=== PATIENT | male | born 1960 | race Caucasian/White ===

== ENCOUNTER 2021-10-27 07:26 | Day surgery (SDC) | payer BC, OTHER ==
[2021-10-27] MEDS ORDERED: fentaNYL 100 MCG/2 ML SDV IV ONE (07:27)
[2021-10-27] MEDS ORDERED: Midazolam 1 MG/ML 2 ML SDV IV ONE (07:27)
[2021-10-27] MEDS ORDERED: Lactated Ringers 1,000 ML IV PRN (07:30)
[2021-10-27] MEDS: Sodium Chloride 0.9% 10 ML Syringe FLUSH PRN (07:55)
[2021-10-27] MEDS: acetaZOLAMIDE 500 MG Cap.ER PO ONE (09:29)
[2021-10-27 09:31] VITALS: BP 157/103; PULSE 65
== END 2021-10-27 09:40 | disposition home or self-care (01) ==
LOC: FB.SDS 07:26
PROVIDERS: ATTEND Ophthalmology
DX: H25.13 Age-related nuclear cataract, bilateral (principal); H35.3131 Nonexudative age-related macular degeneration, bilateral, early dry stage; H04.123 Dry eye syndrome of bilateral lacrimal glands; H35.54 Dystrophies primarily involving the retinal pigment epithelium; H52.31 Anisometropia; I73.9 Peripheral vascular disease, unspecified; E78.5 Hyperlipidemia, unspecified; F17.210 Nicotine dependence, cigarettes, uncomplicated; F41.9 Anxiety disorder, unspecified; Z98.890 Other specified postprocedural states
CPT/HCPCS: 00142-QZ; A9270-GY; J2250; J3010; J3490; V2632

== ENCOUNTER 2021-11-24 06:39 | Day surgery (SDC) | payer OTHER ==
[2021-11-24] MEDS ORDERED: Sodium Chloride 0.9% 10 ML Syringe IV ONE (06:40)
[2021-11-24] MEDS ORDERED: Midazolam 1 MG/ML 2 ML SDV IV ONE (06:40)
[2021-11-24] MEDS ORDERED: Labetalol 100 MG/20 ML MDV IV ONE (06:40)
[2021-11-24] MEDS ORDERED: fentaNYL 100 MCG/2 ML SDV IV ONE (06:40)
[2021-11-24] MEDS ORDERED: Sodium Chloride 0.9% 10 ML Syringe FLUSH PRN (06:45)
[2021-11-24] MEDS ORDERED: Lactated Ringers 1,000 ML IV PRN (06:45)
[2021-11-24] MEDS ORDERED: acetaZOLAMIDE 500 MG Cap.ER PO ONE (09:00)
[2021-11-24 16:28] VITALS: PULSE 64
[2021-11-24 16:29] VITALS: BP 128/84
== END 2021-11-24 09:20 | disposition home or self-care (01) ==
LOC: FB.SDS 06:39
PROVIDERS: ATTEND Ophthalmology
DX: H26.9 Unspecified cataract (principal); F17.210 Nicotine dependence, cigarettes, uncomplicated; F41.9 Anxiety disorder, unspecified; E78.5 Hyperlipidemia, unspecified; Z79.899 Other long term (current) drug therapy; Z98.1 Arthrodesis status; Z98.890 Other specified postprocedural states
CPT/HCPCS: 00142; 66984; A9270; J2250; J3010; J3490

== ENCOUNTER 2024-10-30 08:10 | Day surgery (SDC) | payer BC ==
[~2024-10-30 08:10] MED LIST: Lactated Ringers 1,000 ML IV SCH; Sodium Chloride 0.9% 10 ML Syringe FLUSH PRN
[2024-10-30] MEDS ORDERED: Midazolam 1 MG/ML 2 ML SDV IV ONE (08:11)
[2024-10-30] MEDS ORDERED: Lactated Ringers 1,000 ML IV ONE (08:11)
[2024-10-30] MEDS ORDERED: Propofol 200 MG/20 ML SDV IV ONE (08:11)
[2024-10-30] MEDS ORDERED: Glycopyrrolate 0.2 MG/ML 5 ML MDV IV ONE (08:11)
[2024-10-30] MEDS ORDERED: Sodium Chloride 0.9% 10 ML Syringe FLUSH PRN (08:30)
[2024-10-30] MEDS: Lactated Ringers 1,000 ML IV SCH (08:46)
[2024-10-30 12:03] VITALS: BP 110/83; PULSE 60
== END 2024-10-30 11:57 | disposition home or self-care (01) ==
LOC: FB.SDS 08:10
PROVIDERS: ATTEND Surgery
DX: Z12.11 Encounter for screening for malignant neoplasm of colon (principal); R19.5 Other fecal abnormalities; D12.6 Benign neoplasm of colon, unspecified; D12.2 Benign neoplasm of ascending colon; K57.30 Diverticulosis of large intestine without perforation or abscess without bleeding; K52.9 Noninfective gastroenteritis and colitis, unspecified; F41.9 Anxiety disorder, unspecified; E78.5 Hyperlipidemia, unspecified; Z86.0100 Personal history of colon polyps, unspecified
CPT/HCPCS: 00811; 88305; A9270-GY; J1596; J2250; J2704; J7120